=== PATIENT | female | born 1970 | race Caucasian/White ===

== ENCOUNTER 2021-02-27 14:53 | Emergency (ER) | payer BC ==
[~2021-02-27] VITALS: Ht 165.1 cm; Wt 68.0 kg
--- NOTE | 2021-02-27 14:53 | NUR ---
BIB [id number] with c/o generalized weakness since today morning. No ER beds available at this time. Pt is waiting in hallway with EMS.
--- NOTE | 2021-02-27 15:25 | NUR ---
Unable to do EKG, pt is in the hallway.
--- NOTE | 2021-02-27 15:26 | NUR ---
Pt triaged and placed in chair in the hallway.
[2021-02-27 16:33] LABS: MEAN CORPUSCULAR HEMOGLOBIN 28.2 uug (24.7-32.8); MEAN CORPUSCULAR VOLUME 84.6 fL (75.5-95.3); PLATELET COUNT (AUTO) 198 K/uL (179-408)
--- NOTE | 2021-02-27 16:35 | NUR ---
PATIENT PLACED IN ROOM 03A.
[2021-02-27 17:20] LABS: ALANINE AMINOTRANSFERASE 33 U/L (14-59); ALKALINE PHOSPHATASE 112 U/L (50-136); ASPARTATE AMINOTRANSFERASE 19 U/L (15-37); BILIRUBIN,DIRECT < 0.1 mg/dL (0.0-0.2); BILIRUBIN,TOTAL 0.2 mg/dL (0.2-1.0); CARBON DIOXIDE 29 mmol/L (21-32); CHLORIDE 97 mmol/L (98-107); CREATININE 0.7 mg/dL (0.6-1.3); GLUCOSE 149 mg/dL (74-106); POTASSIUM 3.8 mmol/L (3.5-5.1); TOTAL PROTEIN, SERUM 7.8 g/dL (6.4-8.2); UREA NITROGEN, BLOOD 14 mg/dL (7-18)
[2021-02-27 17:31] LABS: ACETAMINOPHEN < 2.0 ug/mL (10-30); ETHANOL < 3 MG/DL (0-0)
[2021-02-27 17:40] LABS: *BILIRUBIN,URIN NEGATIVE (NEGATIVE); *BLOOD, URINE NEGATIVE (NEGATIVE); *CLARITY,URINE CLEAR (CLEAR); *COLOR,URINE YELLOW (YELLOW); *KETONES,URINE NEGATIVE (NEGATIVE); *UROBILINOGEN,URINE 0.2 E.U./dl (NORMAL); LEUKOCYTE ESTERASE ,URINE NEGATIVE (NEGATIVE); NITRITE, URINE NEGATIVE (NEGATIVE); UGLUCOSE NEGATIVE (NEGATIVE)
[2021-02-27 17:53] LABS: *AMPHETAMINE, URINE NEGATIVE (NEGATIVE); *CANNABINOID, URINE POSITIVE (NEGATIVE); *COCCAINE, URINE NEGATIVE (NEGATIVE); *OPIATE, URINE NEGATIVE (NEGATIVE); *PHENCYCLIDINE SCREEN,URINE NEGATIVE (NEGATIVE)
[2021-02-27 17:54] LABS: *URINE HCG, QUAL NEG (NEGATIVE)
[2021-02-27] MEDS ORDERED: IV NORMAL SALINE 250 ML IV ONE (18:47)
[2021-02-27] MEDS ORDERED: SWABABLE VALVE TRANSFER SET EA MC ONE (18:47)
[2021-02-27] MEDS ORDERED: IOHEXOL 350 100 ML INFUS..BTL ONE (18:47)
--- NOTE | 2021-02-27 22:15 | NUR ---
Called [facility] to page Laurie Unger NP.
[2021-02-28] MEDS ORDERED: QUET25TA PO (00:02)
--- NOTE | 2021-02-28 00:07 | NUR ---
IV removed. Catheter intact and site benign. Pressure and 4x4 gauze applied to site. No bleeding noted.
[2021-02-28 00:12] VITALS: BP 112/74
--- NOTE | 2021-02-28 00:12 | NUR ---
Patient discharged to home in stable condition. Written and verbal after care instructions given. Patient verbalizes understanding of instructions. Stressed follow up or return to ER for worsening s/s.
== END 2021-02-28 00:13 | disposition home or self-care (01) ==
LOC: ER 14:53
DX: R41.82 Altered mental status, unspecified (principal); R79.1 Abnormal coagulation profile; G47.00 Insomnia, unspecified; Z20.822 Contact with and (suspected) exposure to COVID-19; Z87.09 Personal history of other diseases of the respiratory system; R94.31 Abnormal electrocardiogram [ECG] [EKG]
CPT/HCPCS: 36415; 70450; 70496; 70498; 71045; 71275; 80048; 80076; 80299; 80307; 80320; 81003; 82140; 83605; 84443; 84484; 84702; 84703; 85025; 85379; 85730; 87040 ×2; 87086; 87400; 87426; 93005; 99291; Q9967; 70030-TC; A4663; G0480; J7050

== ENCOUNTER 2021-08-04 13:58 | Emergency (ER) | payer BC ==
[~2021-08-04] VITALS: Ht 157.5 cm; Wt 68.9 kg
[~2021-08-04 13:58] MED LIST: QUET25TA PO
[2021-08-04] MEDS ORDERED: ONDANSETRON 4 MG/2 ML VIAL IV ONE (15:00)
[2021-08-04 15:04] LABS: ABG HCO3 25.6 mmol/L; ABG PCO2 40.8 mmHg (35.0-45.0); ABG PH 7.416 (7.350-7.450); ABG PO2 76.4 mmHg (75.0-100.0); ABG SITE RIGHT RADIAL; ABG TOTAL HEMOGLOBIN 13.6 G/dL (12.0-16.0); COHb 0.4 % (0.5-1.5); MetHb 0.1 % (0.0-1.5); O2Hb 95.3 % (94.0-97.0); VENT MODE ROOM AIR
[2021-08-04] MEDS ORDERED: ONDANSETRON 4 MG/2 ML VIAL ONE (15:09)
[2021-08-04 15:27] LABS: HEMATOCRIT 38.6 % (31.2-41.9); MEAN CORPUSCULAR HEMOGLOBIN 27.6 uug (24.7-32.8); PLATELET COUNT (AUTO) 201 K/uL (179-408)
[2021-08-04 15:33] LABS: ALANINE AMINOTRANSFERASE 40 U/L (14-59); ALKALINE PHOSPHATASE 96 U/L (50-136); ASPARTATE AMINOTRANSFERASE 21 U/L (15-37); BILIRUBIN,TOTAL 0.2 mg/dL (0.2-1.0); CARBON DIOXIDE 30 mmol/L (21-32); CHLORIDE 100 mmol/L (98-107); CREATININE 0.7 mg/dL (0.6-1.3); GLUCOSE 125 mg/dL (74-106); LIPASE 63 U/L (73-393); POTASSIUM 3.6 mmol/L (3.5-5.1); TOTAL PROTEIN, SERUM 7.4 g/dL (6.4-8.2); UREA NITROGEN, BLOOD 14 mg/dL (7-18)
[2021-08-04 15:35] LABS: ACETAMINOPHEN < 2.0 ug/mL (10-30)
[2021-08-04 15:53] LABS: THYROID STIMULATING HORMONE 1.585 mIU/mL (0.358-3.740)
[2021-08-04 16:47] LABS: *BILIRUBIN,URIN NEGATIVE (NEGATIVE); *CLARITY,URINE CLEAR (CLEAR); *COLOR,URINE YELLOW (YELLOW); *KETONES,URINE NEGATIVE (NEGATIVE); *UROBILINOGEN,URINE 0.2 E.U./dl (NORMAL); LEUKOCYTE ESTERASE ,URINE 1+ (NEGATIVE); NITRITE, URINE NEGATIVE (NEGATIVE); PH,URINE 6.5 (5.0-8.0); UGLUCOSE NEGATIVE (NEGATIVE)
[2021-08-04 16:50] LABS: *BLOOD, URINE TRACE (NEGATIVE)
[2021-08-04 16:56] LABS: *AMPHETAMINE, URINE NEGATIVE (NEGATIVE); *CANNABINOID, URINE POSITIVE (NEGATIVE); *COCCAINE, URINE NEGATIVE (NEGATIVE); *OPIATE, URINE NEGATIVE (NEGATIVE); *PHENCYCLIDINE SCREEN,URINE NEGATIVE (NEGATIVE)
[2021-08-04] MEDS ORDERED: NITR100C11 PO (17:16)
[2021-08-04 18:06] VITALS: BP 143/93
[2021-08-04 20:01] LABS: SQUAMOUS EPITHELIAL CELL,UR MODERATE /HPF (NONE SEEN)
[2021-08-04 20:02] LABS: BACTERIA,URINE MODERATE /HPF (NONE SEEN); RBC,URINE 0-3 /HPF (0-3)
== END 2021-08-04 17:30 | disposition home or self-care (01) ==
LOC: ER 13:59
DX: R41.82 Altered mental status, unspecified (principal); R94.31 Abnormal electrocardiogram [ECG] [EKG]; E03.9 Hypothyroidism, unspecified
CPT/HCPCS: 36415; 36600 ×2; 70450; 71045; 80053; 80299; 80307; 81001; 82140; 83690; 84439; 84443; 84484; 85025; 87086; 93005; 96374; 99285; J2405; A4663